=== PATIENT | male | born 1970 | race Caucasian/White ===

== ENCOUNTER → 2017-04-28 | Outpatient (CLI) | payer OTHER ==
[~2017-04-28] VITALS: Ht 188 cm; Wt 126.1 kg
[~2017-04-28] MED LIST: ACIPHEX20 MG; AMARYL2 MG PO; AMARYL4 MG PO; ASCORBIC ACID500 M3 PO; ASPIR-LOW81 M1; ASPIR-LOW81 MG PO; Amaryl PO; CINNAMON500 MG PO; CITRATE OF MAG296 ML PO; CRANBERRY500 M2 PO; FEXOFENADINE H180 MG PO; FISH OIL 1,0001 EAC7 PO; FISH OIL CONC1000 M1 PO; FLONASE16 G1 BOTH NARES; HALFPRIN162 MG PO; HYDROCHLOROTH12.5 M3 PO; HYDROCHLOROTH12.5 MG PO; INVOKANA100 MG PO; JANUMET 50/51 TABLET; LIPITOR40 MG PO; LISINOPRIL40 MG PO; LYRICA75 MG PO; Levaquin PO; MEN'S ONE DAIL1 EACH PO; METFORMIN HCL1000 MG PO; METFORMIN HCL500 MG PO; MIRALAX17 GM PO; MULTIVITAMIN1 EAC2 PO; OXYCONTIN10 MG; PATANOL OP100 DROP/5 BOTH EYES; PERCOCET 5/31 TABLET PO; POLYMYXIN B-TMP10 ML RIGHT EYE; POLYTRIM EYE DR10 ML RIGHT EYE; PRILOSEC20 MG PO; SINGULAIR10 MG PO; TRICOR145 MG; ULTRAM50 MG PO; VALTREX1000 MG PO; VITAMIN E1000 UNI1 PO; ZANTAC150 MG PO
[2017-04-28 09:43] LABS: MCH 30.5 PG (29.0-34.0); MCHC 34.3 G/DL (30.0-36.0); MCV 89.1 FL (86-99); MEAN PLAT.VOLUME 9.5 uM^3 (9.0-12.4); PLATELET COUNT 175 K/uL (156-360); RBC DIS.WIDTH-CV 12.9 % (11.8-14.6); RBC DIS.WIDTH-SD 42.2 % (39-53); RED BLOOD COUNT 4.49 M/uL (4.00-5.50); WHITE BLOOD COUNT 4.8 K/uL (4.1-10.2)
[2017-04-28 09:51] LABS: POINT-OF-CARE METER ID UU14174212; POINT-OF-CARE USER ID AHSRSCSLC11
[2017-04-28 09:52] LABS: PROTHROMBIN TIME 10.7 SEC (10.2-12.9)
[2017-04-28 09:55] LABS: PTT 29.4 SEC (25-37)
== END | disposition home or self-care (01) ==
LOC: OPR 08:42 → EDSTATUS 09:00
PROVIDERS: Internal Medicine Gastroenterology
PROC: 0FB03ZX Excision of Liver, Percutaneous Approach, Diagnostic (ICD-10-PCS; principal; 2017-04-28)
DX: K75.81 Nonalcoholic steatohepatitis (NASH) (principal); Z86.010 Personal history of colon polyps; K21.9 Gastro-esophageal reflux disease without esophagitis; Z79.82 Long term (current) use of aspirin; Z79.84 Long term (current) use of oral hypoglycemic drugs; Z87.891 Personal history of nicotine dependence; Z82.49 Family history of ischemic heart disease and other diseases of the circulatory system; Z83.79 Family history of other diseases of the digestive system; Z87.11 Personal history of peptic ulcer disease; E11.9 Type 2 diabetes mellitus without complications; I10 Essential (primary) hypertension
CPT/HCPCS: 77012; 82948; 85027; 85610; 85730; 88307; 88313; J3010

== ENCOUNTER 2017-07-06 19:06 | Emergency (ER) | payer OTHER ==
[~2017-07-06] VITALS: Ht 188 cm; Wt 127.8 kg
[2017-07-06 19:58] LABS: ADD MIUA? NO; BILIRUBIN NEGATIVE; BLOOD NEGATIVE; COLOR STRAW ((YELLOW)); GLUCOSE (STRIP) >=500; KETONES NEGATIVE; LEUKOCYTES NEGATIVE; NITRITE NEGATIVE; PROTEIN (STRIP) NEGATIVE; UCUL ADDED? NO; UROBILINOGEN 0.2 MG/DL (0.2-1.0)
[2017-07-06 20:02] LABS: HEMATOCRIT 41.5 % (38.0-50.0); MCH 31.3 PG (29.0-34.0); MCHC 34.5 G/DL (30.0-36.0); MCV 90.8 FL (86-99); MEAN PLAT.VOLUME 9.1 uM^3 (9.0-12.4); PLATELET COUNT 189 K/uL (156-360); RBC DIS.WIDTH-CV 12.4 % (11.8-14.6); RBC DIS.WIDTH-SD 40.6 % (39-53); RED BLOOD COUNT 4.57 M/uL (4.00-5.50); WHITE BLOOD COUNT 5.8 K/uL (4.1-10.2)
[2017-07-06 20:11] LABS: CHLORIDE 101 mEq/L (99-109); POTASSIUM 4.1 mEq/L (3.7-5.4); SODIUM 135 mEq/L (136-147)
[2017-07-06 20:12] LABS: D-DIMER ELISA < 150.00 ng/mLDDU (<230)
[2017-07-06 20:13] LABS: GLUCOSE 245 mg/dL (70-99)
[2017-07-06 20:14] LABS: ANION GAP 10 MEQ/L (2-14)
[2017-07-06 20:15] LABS: TOTAL BILIRUBIN 0.5 mg/dL (0.0-1.0)
[2017-07-06 20:17] LABS: ALKALINE PHOSPHATASE 91 IU/L (3-129); GFR ESTIMATE (CALCULATED) > 59 mL/min/ (58.99-99999)
[2017-07-06 20:18] LABS: UREA NITROGEN (BUN) 17 mg/dL (9-23)
[2017-07-06 20:28] LABS: TROP-I INTERPRETATION NEGATIVE; TROPONIN-I < 0.01 ng/mL (0.0-0.30)
[2017-07-06 23:06] LABS: TROP-I INTERPRETATION NEGATIVE; TROPONIN-I < 0.01 ng/mL (0.0-0.30)
[2017-07-06 23:38] VITALS: BP 129/72
== END 2017-07-07 00:01 | disposition home or self-care (01) ==
LOC: EME 19:06
PROVIDERS: Physician Assistant
DX: R25.2 Cramp and spasm (principal); R07.9 Chest pain, unspecified; E11.9 Type 2 diabetes mellitus without complications; E78.5 Hyperlipidemia, unspecified; I10 Essential (primary) hypertension; K21.9 Gastro-esophageal reflux disease without esophagitis; Z79.82 Long term (current) use of aspirin; Z79.891 Long term (current) use of opiate analgesic; Z79.84 Long term (current) use of oral hypoglycemic drugs; Z88.1 Allergy status to other antibiotic agents
CPT/HCPCS: 71020; 80053; 81003; 84484; 85027; 85379; 93005; 93971; 99281; 99284